=== PATIENT | male | born 1950 | race African-American/Black ===

== ENCOUNTER 2017-12-06 07:30 | Inpatient (IN) ==
[2017-11-30 16:22] LABS: Basophils % 0.6 % (0.0-0.8); Eosinophils # 0.2 10*3/uL (0.0-0.87); Eosinophils % 4.6 % (0.00-10.9); Hematocrit 42.2 VOL% (42.0-52.0); Hemoglobin 14.5 GM/DL (14.0-18.0); Lymphocytes # 1.7 10*3/uL (1.4-4.0); Lymphocytes % 33.9 % (21.2-54.2); Mean Corpuscular HGB Conc 34.4 GM/DL (32-36); Mean Corpuscular Hemoglobin 32 PG (27-34); Mean Corpuscular Volume 91.7 FL (87-102); Mean Platelet Volume 10.4 FL (9.6-12.0); Monocytes # 0.6 10*3/uL (0.11-0.8); Neutrophils # 2.5 10*3/uL (1.4-7.4); Neutrophils % 48.9 % (38.7-73.9); Platelet Count 181 T/CUMM (130-400); Red Cell Distribution Width 13.5 % (9.3-17.3)
[2017-11-30 16:38] LABS: PT Patient Result 10.6 SECS; Partial Thromboplastin Time 27.5 SECS (0-40)
[2017-11-30 16:59] LABS: Albumin 3.8 G/DL (3.4-5.0); Bilirubin,Total 0.6 MG/DL (0.2-1.0); Calcium 9.1 MG/DL (8.5-10.1); Potassium 3.4 MMOL/L (3.5-5.1); Total Protein 7.5 G/DL (6.4-8.3)
[2017-11-30 17:16] LABS: Apearance,Urine CLEAR (Clear); Blood, Urine Negative (Negative); Glucose,Urine (UA) Negative (Negative); Hyaline Casts,Urine 5 /LPF (0-3); Ketones,Urine 5 mg/dL (Negative); Mucus,Urine Many /LPF (Occasional); Nitrite,Urine Negative (Negative); Protein,Urine 30 MG/DL; RBC,Urine 1 /HPF (0-4); Renal Epithelial Cells,Urine Occasional /HPF (<1); Squamous Epithelial Cell,Urine Occasional /HPF (0-10); Urine Color Amber (Yellow); Urine Specific Gravity 1.032 (1.001-1.035); WBC,Urine 2 /HPF (0-6)
[2017-11-30 17:20] LABS: Bilirubin,Urine Small mg/dL (Negative)
[~2017-12-06 07:30] MED LIST: ACETAMINOPHEN 500 MG TABLET PO ONE; BUPIVACAINE SPINAL 0.75% 2 ML AMP SPINAL ONE; GABAPENTIN 400 MG CAPSULE PO ONE; LACTATED RINGERS 1,000 ML IV SCH; VANCOMYCIN 1,000 MG VIAL ONE; VANCOMYCIN INJ 1,000 MG in SODIUM CHLORIDE 0.9% 250 ML IV ONE; ceFAZolin 2,000 MG in PREMIX 1 EACH IV ONE
[2017-12-12] MEDS ORDERED: LACTATED RINGERS 1,000 ML IV SCH (07:30)
[2017-12-12] MEDS ORDERED: FAMOTIDINE 20 MG TABLET PO ONE (07:30)
[2017-12-12] MEDS ORDERED: DIAZEPAM 5 MG TABLET PO ONE (07:30)
[2017-12-12] MEDS ORDERED: MORPHINE 10 MG/10 ML VIAL ONE (09:05)
[2017-12-12] MEDS ORDERED: ROPIVACAINE 0.5% 30 ML VIAL ONE (09:05)
[2017-12-12] MEDS ORDERED: BACITRACIN OINT 0.9 GM PACK TOP ONE (09:11)
[2017-12-12] MEDS ORDERED: DIAZEPAM 5 MG TABLET ONE (09:17)
[2017-12-12] MEDS ORDERED: FAMOTIDINE 20 MG TABLET ONE (09:17)
[2017-12-12] MEDS ORDERED: VANCOMYCIN 1,000 MG VIAL ONE (09:17)
[2017-12-12] MEDS ORDERED: VANCOMYCIN INJ 1,000 MG in SODIUM CHLORIDE 0.9% 250 ML IV ONE (10:00)
[2017-12-12] MEDS ORDERED: ceFAZolin 2,000 MG in PREMIX 1 EACH IV ONE (10:00)
[2017-12-12] MEDS ORDERED: TRANEXAMIC ACID 1,000 MG/10 ML VIAL ONE (10:46)
[2017-12-12] MEDS ORDERED: oxyCODONE IR 5 MG TABLET PO PRN ×2 (11:57)
[2017-12-12] MEDS ORDERED: MAGNESIUM HYDROXIDE SUSP 30 ML UDCUP PO PRN (11:57)
[2017-12-12] MEDS ORDERED: diphenhydrAMINE CAP 25 MG CAPSULE PO PRN (11:57)
[2017-12-12] MEDS ORDERED: HYDROmorphone 2 MG/1 ML VIAL IV PRN ×2 (11:57)
[2017-12-12] MEDS ORDERED: ONDANSETRON 4 MG/2 ML VIAL IV PRN (11:57)
[2017-12-12 12:05] LABS: Apearance,Urine Slightly Hazy (Clear); Bacteria,Urine Occasional /HPF (Few); Bilirubin,Urine Negative (Negative); Blood, Urine Negative (Negative); Glucose,Urine (UA) Negative (Negative); Ketones,Urine Negative (Negative); Nitrite,Urine Negative (Negative); Protein,Urine Negative; Squamous Epithelial Cell,Urine Occasional /HPF (0-10); Urine Color Yellow (Yellow); Urine Specific Gravity 1.011 (1.001-1.035); Urine Urobilinogen < 2.0 EU/DL (0.2-1.0); WBC,Urine 1 /HPF (0-6)
[2017-12-12] MEDS ORDERED: LIDOCAINE 1% 5 ML VIAL ONE (12:14)
[2017-12-12] MEDS ORDERED: PROPOFOL 200 MG/20 ML VIAL IV ONE (12:14)
[2017-12-12] MEDS ORDERED: MIDAZOLAM 2 MG/2 ML VIAL ONE (12:14)
[2017-12-12] MEDS ORDERED: ONDANSETRON 4 MG/2 ML VIAL ONE (12:14)
[2017-12-12] MEDS ORDERED: fentaNYL 100 MCG/2 ML VIAL ONE (12:14)
[2017-12-12] MEDS ORDERED: PHENYLEPHRINE 1 MG/10 ML SYRINGE IV ONE (12:15)
[2017-12-12] MEDS ORDERED: PROPOFOL 500 MG/50 ML BOTTLE IV ONE (12:15)
[2017-12-12] MEDS ORDERED: LABETALOL 100 MG/20 ML VIAL IV ONE (15:23)
[2017-12-12] MEDS ORDERED: MEPERIDINE 25 MG/1 ML VIAL ONE (16:11)
[2017-12-12] MEDS ORDERED: MEPERIDINE 25 MG/1 ML VIAL IV PRN (16:16)
[2017-12-12] MEDS ORDERED: hydrALAZINE 20 MG/1 ML VIAL IV PRN (18:54)
[2017-12-12] MEDS ORDERED: POTASSIUM CHLORIDE 20 MEQ TABLET PO ONE (18:55)
[2017-12-12] MEDS: LACTATED RINGERS 1,000 ML IV SCH (19:05)
[2017-12-12] MEDS ORDERED: ZALEPLON 5 MG CAPSULE PO PRN (21:00)
[2017-12-12] MEDS: ceFAZolin 2,000 MG in PREMIX 1 EACH IV SCH (22:09)
[2017-12-12] MEDS: ACETAMINOPHEN 500 MG TABLET PO SCH (22:11)
[2017-12-12] MEDS: KETOROLAC 30 MG/1 ML VIAL IV SCH (22:12)
[2017-12-12] MEDS: DOCUSATE SODIUM 100 MG CAPSULE PO SCH (22:12)
[2017-12-13] MEDS: KETOROLAC 30 MG/1 ML VIAL IV SCH ×4 (02:51→15:27)
[2017-12-13] MEDS: ACETAMINOPHEN 500 MG TABLET PO SCH ×3 (02:51→15:26)
[2017-12-13] MEDS: LACTATED RINGERS 1,000 ML IV SCH (02:51)
[2017-12-13] MEDS ORDERED: ceFAZolin 2,000 MG in PREMIX 1 EACH IV SCH (05:00)
[2017-12-13] MEDS: ceFAZolin 2,000 MG in PREMIX 1 EACH IV SCH (05:11)
[2017-12-13 06:20] LABS: Basophils % 0.3 % (0.0-0.8); Eosinophils # 0.2 10*3/uL (0.0-0.87); Eosinophils % 3.6 % (0.00-10.9); Hematocrit 35.8 VOL% (42.0-52.0); Immature Granulocytes % 0.3 %; Immature Granulocytes Absolute 0.02 #; Lymphocytes # 1.5 10*3/uL (1.4-4.0); Lymphocytes % 26.2 % (21.2-54.2); Mean Corpuscular HGB Conc 33.5 GM/DL (32-36); Mean Corpuscular Hemoglobin 32 PG (27-34); Mean Corpuscular Volume 95.5 FL (87-102); Mean Platelet Volume 11.4 FL (9.6-12.0); Monocytes # 0.7 10*3/uL (0.11-0.8); Monocytes % 12.5 % (1.7-12.7); Neutrophils # 3.3 10*3/uL (1.4-7.4); Neutrophils % 57.1 % (38.7-73.9); Platelet Count 160 T/CUMM (130-400); Red Blood Count 3.75 MC/CUMM (3.8-5.5); Red Cell Distribution Width 13.2 % (9.3-17.3); White Blood Count 5.8 T/CUMM (4-12)
[2017-12-13] MEDS: FONDAPARINUX 2.5 MG/0.5 ML SYRINGE SUBCUT SCH (06:54)
[2017-12-13 06:56] LABS: Calcium 8.1 MG/DL (8.5-10.1); Osmolality,Calculated 276.4 MOS/KG (273-304); Potassium 3.5 MMOL/L (3.5-5.1)
[2017-12-13] MEDS: DOCUSATE SODIUM 100 MG CAPSULE PO SCH ×2 (09:08→20:20)
[2017-12-13] MEDS: NICOTINE 14 MG/24 HR PATCH TRANSDERM SCH (09:09)
[2017-12-13] MEDS ORDERED: ACETAMINOPHEN 500 MG TABLET PO SCH (15:30)
[2017-12-13] MEDS: CELECOXIB 200 MG CAPSULE PO SCH (20:20)
[2017-12-14 05:46] LABS: Basophils % 0.5 % (0.0-0.8); Eosinophils # 0.5 10*3/uL (0.0-0.87); Eosinophils % 6.9 % (0.00-10.9); Hematocrit 38.6 VOL% (42.0-52.0); Hemoglobin 12.7 GM/DL (14.0-18.0); Immature Granulocytes % 0.3 %; Immature Granulocytes Absolute 0.02 #; Lymphocytes # 1.1 10*3/uL (1.4-4.0); Lymphocytes % 16.7 % (21.2-54.2); Mean Corpuscular HGB Conc 32.9 GM/DL (32-36); Mean Corpuscular Hemoglobin 32 PG (27-34); Mean Corpuscular Volume 96.5 FL (87-102); Mean Platelet Volume 11.1 FL (9.6-12.0); Monocytes # 0.8 10*3/uL (0.11-0.8); Monocytes % 12.4 % (1.7-12.7); Neutrophils # 4.1 10*3/uL (1.4-7.4); Neutrophils % 63.2 % (38.7-73.9); Platelet Count 163 T/CUMM (130-400); Red Cell Distribution Width 13.2 % (9.3-17.3); White Blood Count 6.5 T/CUMM (4-12)
[2017-12-14] MEDS: FONDAPARINUX 2.5 MG/0.5 ML SYRINGE SUBCUT SCH (06:32)
[2017-12-14] MEDS: DOCUSATE SODIUM 100 MG CAPSULE PO SCH ×2 (09:19→20:04)
[2017-12-14] MEDS: CELECOXIB 200 MG CAPSULE PO SCH (09:19)
[2017-12-14] MEDS: NICOTINE 14 MG/24 HR PATCH TRANSDERM SCH (11:08)
[2017-12-15] MEDS: FONDAPARINUX 2.5 MG/0.5 ML SYRINGE SUBCUT SCH (05:01)
[2017-12-15 05:56] LABS: Basophils % 0.3 % (0.0-0.8); Eosinophils # 0.5 10*3/uL (0.0-0.87); Eosinophils % 8.4 % (0.00-10.9); Hematocrit 34.7 VOL% (42.0-52.0); Hemoglobin 11.8 GM/DL (14.0-18.0); Immature Granulocytes % 0.3 %; Immature Granulocytes Absolute 0.02 #; Lymphocytes # 1.7 10*3/uL (1.4-4.0); Lymphocytes % 28.5 % (21.2-54.2); Mean Corpuscular Hemoglobin 32 PG (27-34); Mean Platelet Volume 11.2 FL (9.6-12.0); Monocytes # 0.8 10*3/uL (0.11-0.8); Monocytes % 14.1 % (1.7-12.7); Neutrophils # 2.8 10*3/uL (1.4-7.4); Neutrophils % 48.4 % (38.7-73.9); Platelet Count 168 T/CUMM (130-400); Red Blood Count 3.73 MC/CUMM (3.8-5.5); Red Cell Distribution Width 13.4 % (9.3-17.3); White Blood Count 5.8 T/CUMM (4-12)
[2017-12-15] MEDS: DOCUSATE SODIUM 100 MG CAPSULE PO SCH (09:32)
[2017-12-15] MEDS: NICOTINE 14 MG/24 HR PATCH TRANSDERM SCH (09:32)
[2017-12-15] MEDS: CELECOXIB 200 MG CAPSULE PO SCH (09:32)
[2017-12-15 15:48] VITALS: BP 131/64
== END 2017-12-15 16:30 | disposition home or self-care (01) | DRG 470 ==
LOC: N.SDSINP 12-12 05:48 → N.3E 12-12 18:01
PROVIDERS: ADMIT Orthopaedic Surgery; ATTEND Orthopaedic Surgery